=== PATIENT | female | born 1955 | race Caucasian/White ===

== ENCOUNTER → 2022-03-05 08:09 | Outpatient (CLI) | payer MEDICARE, SELFPAY ==
--- NOTE | ~2022-03-05 | MMUS_ITS ---
EXAMINATION: MM diagnostic dax BI w everett, US breast BI limited HISTORY: Left breast and right axillary lumps TECHNIQUE: Bilateral full field and spot ML, MLO and craniocaudal 3-D tomosynthesis images of the seun asts were performed and synthetic 2-D images were generated. CAD analysis was submitted and interpret ed. High resolution targeted right axillary and left breast ultrasound and areas of complaint of lump s was performed. COMPARISON: 02/16/2017, 02/12/2016 bilateral screening mammogram examinations BREAST PARENCHYMAL COMPOSITION: There are scattered areas of fibroglandular density. FINDINGS: MAMMOGRAPHIC FINDINGS: No suspicious mass or architectural distortion, malignant calcification, skin thickening or retractio n or significant new or developing density is detected. Bilateral circumscribed unremarkable axillary lymph nodes are noted. ULTRASOUND: Right axilla at area of complaint of palpable lump: 8.6 x 28 x 17 mm benign-appearing lymph node with relatively uniform thickness and echogenicity cortex, prominent fatty hilum. Another approximately 5 x 15 x 11 mm lymph node is noted. Left breast 8:00 4.5 cm from nipple and 4 cm from nipple: No suspicious mass or shadowing is evident at these areas. IMPRESSION: 1. No mammographic evidence of malignancy 2. Routine mammographic screening is recommended. BI-RADS Category 1: Negative Reviewed, dictated and finalized at location A. IMPRESSION: 1. No mammographic evidence of malignancy 2. Routine mammographic screening is recommended. BI-RADS Category 1: Negative
== END ==
PROVIDERS: PCP Physician Assistant Medical; Visit Provider Physician Assistant Medical
DX: N63.31 Unspecified lump in axillary tail of the right breast (principal); N63.13 Unspecified lump in the right breast, lower outer quadrant
CPT/HCPCS: 76642; 77062; 77066; G0279